=== PATIENT | male | born 1955 | race Caucasian/White ===

== ENCOUNTER 2017-08-31 15:04 | Emergency (ER) | payer OTHER ==
[2017-08-31] MEDS ORDERED: ALBUTEROL/IPRATROPIUM 1 VIAL SOL ONE (16:03)
[2017-08-31 16:18] LABS: BASOPHILS % (AUTO) 1 % (0-3); EOSINOPHILS % (AUTO) 4 % (0-9); HEMATOCRIT 35 % (39-53); MEAN CORPUSCULAR HGB CONC 35.2 gm/dl (32.0-36.0); MEAN CORPUSCULAR VOLUME 86 fL (80-100); MONOCYTES % (AUTO) 13.2 % (0-12); NEUTROPHILS % (AUTO) 67.4 % (37-80)
[2017-08-31 16:45] VITALS: RESP 24; TEMP 97
[2017-08-31 16:49] LABS: CALCIUM 8.5 mg/dl (8.5-10.1); GLOM FILT RATE 71 mL/min (>60); SODIUM 140 mMol/L (136-145)
[2017-08-31] MEDS ORDERED: LEVOFLOXACIN 500 MG TAB PO ONE ×2 (19:11→19:36)
[2017-08-31] MEDS ORDERED: SOLUMEDROL 125 MG/2 ML 125 MG/2 ML PDS IM ONE (19:36)
[2017-08-31] MEDS ORDERED: SOLUMEDROL 125 MG/2 ML 125 MG/2 ML PDS IV ONE (19:43)
[2017-08-31] MEDS ORDERED: LEVOFLOXACIN 500 MG TAB ONE (19:45)
[2017-08-31] MEDS ORDERED: SOLUMEDROL 125 MG/2 ML 125 MG/2 ML PDS ONE (19:45)
[2017-08-31] MEDS ORDERED: ALBUTEROL/IPRATROPIUM 1 VIAL SOL INH ONE (19:48)
[2017-09-01 00:39] VITALS: BP 184/75; PULSE 66; O2SAT 93
== END 2017-08-31 20:11 | disposition home or self-care (01) ==
LOC: ED 15:04
DX: J18.9 Pneumonia, unspecified organism (principal)
CPT/HCPCS: 99285 ×3; 71020; 71275; 80048; 84484; 85025; 85378; 93005; J2930; Q9967; 36415; 96374; 99284; J7620

== ENCOUNTER 2019-02-18 07:46 | Inpatient (IN) | payer MEDICARE, OTHER ==
[2019-02-18] MEDS ORDERED: HYDRALAZINE HYDROCHLORIDE 20 MG/ML SOL IV ONE (08:06)
[2019-02-18] MEDS ORDERED: HYDRALAZINE HYDROCHLORIDE 20 MG/ML SOL ONE (08:15)
[2019-02-18 08:33] LABS: BASOPHILS % (AUTO) 1 % (0-3); EOSINOPHILS % (AUTO) 5 % (0-9); HEMATOCRIT 40 % (39-53); HEMOGLOBIN 12.4 gm/dl (13.5-17.7); MEAN CORPUSCULAR HEMOGLOBIN 27.1 pg (27.0-32.0); MEAN CORPUSCULAR VOLUME 87 fL (80-100); MONOCYTES % (AUTO) 9.9 % (0-12); NEUTROPHILS % (AUTO) 67.1 % (37-80)
[2019-02-18 08:50] LABS: BLOOD UREA NITROGEN 18 mg/dl (7-18); CALCIUM 8.3 mg/dl (8.5-10.1); CARBON DIOXIDE 28.2 mEq/L (21-32); CHLORIDE 105 mMol/L (98-107); CREATININE 1.13 mg/dl (0.80-1.30); GLUCOSE 163 mg/dl (74-106); POTASSIUM 4.7 mMol/L (3.5-5.1); SODIUM 141 mMol/L (136-145); TROP I < 0.017 ng/ml (0.000-0.056)
[2019-02-18] MEDS ORDERED: FUROSEMIDE 20mg SOL IV ONE ×2 (08:58→11:20)
[2019-02-18] MEDS: SODIUM CHLORIDE 0.9% FLUSH 10 ML SOL IV PRN ×2 (09:00→11:45)
[2019-02-18] MEDS ORDERED: FUROSEMIDE 20mg SOL ONE (09:04)
[2019-02-18] MEDS ORDERED: NITROGLYCERIN 0.4 MG TAB SL PRN (10:16)
[2019-02-18] MEDS: OXYCODONE HYDROCHLORIDE 5 MG TAB PO PRN ×3 (11:05→20:51)
[2019-02-18] MEDS: NOVOLOG FLEXPEN SC SCH ×3 (12:20→20:55)
[2019-02-18] MEDS: GABAPENTIN 300 MG CAP PO SCH ×2 (14:16→20:50)
[2019-02-18] MEDS: PREGABALIN 50 MG CAP PO SCH ×2 (14:32→20:50)
[2019-02-18] MEDS: LISINOPRIL 20 MG TAB PO SCH ×2 (18:21→22:18)
[2019-02-18] MEDS: FUROSEMIDE 40 MG TAB PO SCH (18:21)
[2019-02-18] MEDS: SODIUM CHLORIDE 0.9% FLUSH 10 ML SOL IV SCH (20:45)
[2019-02-18] MEDS: CARVEDILOL 3.125 MG TAB PO SCH (20:51)
[2019-02-18] MEDS: METFORMIN HYDROCHLORIDE 500 MG TAB PO SCH (20:51)
[2019-02-18] MEDS ORDERED: CARVEDILOL 12.5 MG TAB PO SCH (21:00)
[2019-02-18] MEDS ORDERED: FUROSEMIDE 40 MG SOL IV SCH (21:00)
[2019-02-19 07:39] LABS: ALBUMIN 3.5 gm/dl (3.4-5.0); ALKALINE PHOSPHATASE 57 IU/L (46-116); ALT 17 IU/L (14-63); AST 12 IU/L (15-37); BILIRUBIN,TOTAL 0.8 mg/dl (0.2-1.0); BLOOD UREA NITROGEN 16 mg/dl (7-18); CALCIUM 8.8 mg/dl (8.5-10.1); CARBON DIOXIDE 30.4 mEq/L (21-32); CHLORIDE 103 mMol/L (98-107); CHOL/HDL RATIO 4.1 (2.8-6.4); CHOLESTEROL 119 mg/dl (120-200); CREATININE 1.19 mg/dl (0.80-1.30); GLUCOSE 151 mg/dl (74-106); HDL CHOLESTEROL 29 mg/dl (40-60); LDL/HDL RATIO 2.4 (1.5-4.5); POTASSIUM 4.5 mMol/L (3.5-5.1); SODIUM 141 mMol/L (136-145); TOTAL PROTEIN 7.6 gm/dl (6.4-8.2); TROP I < 0.017 ng/ml (0.000-0.056)
[2019-02-19] MEDS: NOVOLOG FLEXPEN SC SCH ×4 (07:59→21:32)
[2019-02-19] MEDS: CARVEDILOL 3.125 MG TAB PO SCH ×2 (08:56→22:26)
[2019-02-19] MEDS: METFORMIN HYDROCHLORIDE 500 MG TAB PO SCH ×2 (08:56→22:27)
[2019-02-19] MEDS: PREGABALIN 50 MG CAP PO SCH ×3 (08:56→20:44)
[2019-02-19] MEDS: ASPIRIN 81 MG CHEWABLE CTB PO SCH (08:56)
[2019-02-19] MEDS: GABAPENTIN 300 MG CAP PO SCH ×3 (08:56→20:46)
[2019-02-19] MEDS: LISINOPRIL 20 MG TAB PO SCH (08:57)
[2019-02-19] MEDS: SODIUM CHLORIDE 0.9% FLUSH 10 ML SOL IV SCH ×4 (08:57→20:43)
[2019-02-19] MEDS: PANTOPRAZOLE SODIUM 40 MG ECT PO SCH (08:57)
[2019-02-19] MEDS: FUROSEMIDE 40 MG TAB PO SCH (08:59)
[2019-02-19] MEDS: ENOXAPARIN 100 MG SOL SC SCH (08:59)
[2019-02-19] MEDS ORDERED: LISINOPRIL 20 MG TAB PO SCH (09:00)
[2019-02-19] MEDS: OXYCODONE HYDROCHLORIDE 5 MG TAB PO PRN ×4 (09:06→21:03)
[2019-02-19] MEDS: FUROSEMIDE 40 MG SOL IV SCH ×2 (10:58→13:56)
[2019-02-19] MEDS: AMLODIPINE 5 MG TAB PO SCH (10:58)
[2019-02-19] MEDS ORDERED: FUROSEMIDE 40 MG SOL IV SCH (21:00)
[2019-02-20] MEDS: OXYCODONE HYDROCHLORIDE 5 MG TAB PO PRN ×4 (04:10→21:01)
[2019-02-20] MEDS: SODIUM CHLORIDE 0.9% FLUSH 10 ML SOL IV SCH (04:15)
[2019-02-20 07:44] LABS: CALCIUM 8.6 mg/dl (8.5-10.1); CREATININE 1.21 mg/dl (0.80-1.30); POTASSIUM 4.4 mMol/L (3.5-5.1)
[2019-02-20] MEDS: NOVOLOG FLEXPEN SC SCH ×4 (08:04→21:05)
[2019-02-20] MEDS: ENOXAPARIN 100 MG SOL SC SCH (08:04)
[2019-02-20] MEDS: GABAPENTIN 300 MG CAP PO SCH ×3 (08:06→20:56)
[2019-02-20] MEDS: METFORMIN HYDROCHLORIDE 500 MG TAB PO SCH ×2 (08:06→20:56)
[2019-02-20] MEDS: PANTOPRAZOLE SODIUM 40 MG ECT PO SCH (08:06)
[2019-02-20] MEDS: ASPIRIN 81 MG CHEWABLE CTB PO SCH (08:06)
[2019-02-20] MEDS: CARVEDILOL 3.125 MG TAB PO SCH ×2 (08:06→20:55)
[2019-02-20] MEDS: PREGABALIN 50 MG CAP PO SCH ×3 (08:06→20:55)
[2019-02-20] MEDS: AMLODIPINE 5 MG TAB PO SCH (08:19)
[2019-02-20] MEDS ORDERED: AMLODIPINE 5 MG TAB PO SCH (09:00)
[2019-02-20] MEDS: ACETAMINOPHEN 325 MG PO PRN (09:42)
[2019-02-20] MEDS: FUROSEMIDE 20 MG TAB PO SCH ×2 (09:42→11:44)
[2019-02-20] MEDS: LISINOPRIL 20 MG TAB PO SCH (09:42)
[2019-02-20] MEDS: NAPROXEN PO PRN (11:44)
[2019-02-20] MEDS: FUROSEMIDE 40 MG SOL IV SCH (11:50)
[2019-02-21 07:54] LABS: CALCIUM 8.8 mg/dl (8.5-10.1); CARBON DIOXIDE 30.8 mEq/L (21-32); CREATININE 1.22 mg/dl (0.80-1.30); POTASSIUM 4.5 mMol/L (3.5-5.1)
[2019-02-21] MEDS: ENOXAPARIN 100 MG SOL SC SCH (08:42)
[2019-02-21] MEDS: NOVOLOG FLEXPEN SC SCH ×4 (08:42→21:11)
[2019-02-21] MEDS: FUROSEMIDE 20 MG TAB PO SCH ×2 (08:44→12:02)
[2019-02-21] MEDS: ASPIRIN 81 MG CHEWABLE CTB PO SCH (08:44)
[2019-02-21] MEDS: CARVEDILOL 3.125 MG TAB PO SCH ×2 (08:44→20:32)
[2019-02-21] MEDS: PANTOPRAZOLE SODIUM 40 MG ECT PO SCH (08:45)
[2019-02-21] MEDS: AMLODIPINE 5 MG TAB PO SCH (08:45)
[2019-02-21] MEDS: LISINOPRIL 20 MG TAB PO SCH (08:45)
[2019-02-21] MEDS: PREGABALIN 50 MG CAP PO SCH ×3 (08:45→20:33)
[2019-02-21] MEDS: OXYCODONE HYDROCHLORIDE 5 MG TAB PO PRN ×3 (08:45→18:20)
[2019-02-21] MEDS: GABAPENTIN 300 MG CAP PO SCH ×3 (08:45→20:33)
[2019-02-21] MEDS: METFORMIN HYDROCHLORIDE 500 MG TAB PO SCH ×2 (08:45→20:33)
[2019-02-21] MEDS: NAPROXEN PO PRN (11:17)
[2019-02-21] MEDS: ACETAMINOPHEN 325 MG PO PRN (13:46)
[2019-02-22] MEDS: NOVOLOG FLEXPEN SC SCH ×3 (08:29→17:35)
[2019-02-22] MEDS: PREGABALIN 50 MG CAP PO SCH ×2 (08:30→14:36)
[2019-02-22] MEDS: GABAPENTIN 300 MG CAP PO SCH ×2 (08:31→14:34)
[2019-02-22] MEDS: CARVEDILOL 3.125 MG TAB PO SCH (08:32)
[2019-02-22] MEDS: METFORMIN HYDROCHLORIDE 500 MG TAB PO SCH (08:32)
[2019-02-22] MEDS: PANTOPRAZOLE SODIUM 40 MG ECT PO SCH (08:33)
[2019-02-22] MEDS: LISINOPRIL 20 MG TAB PO SCH (08:34)
[2019-02-22] MEDS: AMLODIPINE 5 MG TAB PO SCH (08:40)
[2019-02-22] MEDS: OXYCODONE HYDROCHLORIDE 5 MG TAB PO PRN ×2 (08:40→12:23)
[2019-02-22] MEDS: ACETAMINOPHEN 325 MG PO PRN (08:40)
[2019-02-22] MEDS: FUROSEMIDE 20 MG TAB PO SCH ×2 (08:40→12:13)
[2019-02-22 11:46] VITALS: PULSE 54; TEMP 98.2
[2019-02-22 12:01] LABS: APPEARANCE,URINE Slightly Cloudy; BILIRUBIN,URINE 1+ (NEGATIVE); COLOR,URINE Amber; GLUCOSE, URINE (UA) NEGATIVE (NEGATIVE); KETONES,URINE NEGATIVE (NEGATIVE); LEUKOCYTE ESTERASE ,URINE NEGATIVE (NEGATIVE); NITRATE,URINE NEGATIVE (NEGATIVE); OCCULT BLOOD,URINE 3+ (NEG-TRACE)
[2019-02-22 12:24] LABS: ICTOTEST,URINE NEGATIVE (NEGATIVE)
[2019-02-22 12:25] LABS: BACTERIA 1+ (< 1+); CRYSTALS NEGATIVE (0-3 AVE/HPF); RBC,URINE TNTC (0-3AV/HPF)
[2019-02-22 16:39] VITALS: BP 169/75; RESP 18; O2SAT 98
== END 2019-02-22 18:25 | disposition home or self-care (01) | DRG 293 ==
LOC: ED 07:46 → ACUTE CARE 09:23 → UNDOADMIN 09:23 → ACUTE CARE 10:05
PROVIDERS: ADMIT Family Medicine; ATTEND Family Medicine
DX: I50.9 Heart failure, unspecified (principal); R06.02 Shortness of breath; R60.9 Edema, unspecified; E11.9 Type 2 diabetes mellitus without complications; I10 Essential (primary) hypertension; Z79.4 Long term (current) use of insulin; M25.561 Pain in right knee; R31.0 Gross hematuria; G47.34 Idiopathic sleep related nonobstructive alveolar hypoventilation
CPT/HCPCS: 36415; 71045; 80048; 80053; 80061; 81001; 82962; 83880; 84484; 84550; 85025; 87088; 93005; 93012; 93306; 94150; 94762; 96374; 96375; 99283; 99284; J0360; J1650; J1940; Q9957; A9270; A9270-GY; J1815

== ENCOUNTER 2019-05-12 02:04 | Emergency (ER) | payer MEDICARE, OTHER ==
[2019-05-12] MEDS ORDERED: FUROSEMIDE 20mg SOL IV ONE (02:15)
[2019-05-12] MEDS ORDERED: FUROSEMIDE 20mg SOL ONE (02:24)
[2019-05-12 02:27] VITALS: TEMP 98
[2019-05-12 02:53] VITALS: BP 150/91; PULSE 51; RESP 20; O2SAT 94
== END 2019-05-12 03:45 | disposition home or self-care (01) | DRG 204 ==
LOC: ED 02:04
DX: R06.02 Shortness of breath (principal); I50.9 Heart failure, unspecified; I10 Essential (primary) hypertension; E11.9 Type 2 diabetes mellitus without complications
CPT/HCPCS: 83880; 96374; 99283; J1940